=== PATIENT | male | born 1940 | race Caucasian/White ===

== ENCOUNTER → 2017-11-28 | Outpatient (CLI) | payer MEDICARE, OTHER ==
[~2017-11-28] MED LIST: ASPI-1471 PO; ASPI81TA94 PO; ATOR10TA24 PO; AZIT-1 PO; Areds2 PO; CETI-169 PO; CHOL10005 PO; DIPH-740 PO; GLUC-129 PO; GLUC-198 PO; GUAI120L PO; IBU200 PO; METO25TA23 PO; METXL50 PO; MULT1CAP41 PO; OMEG-11 PO; PRED20TA6 PO; SAW1CAPS3 PO; SOLI10TA8 PO; SULF-198 PO; TURM1POW3 MC; UBID400C6 PO
--- NOTE | 2017-11-28 08:59 | EKG ---
FACILITY: [facility] PATIENT NAME: GARRET SILVEIRA : [id number] MR: [id number] V: [id number] EXAM DATE: ORDERING PHYSICIAN: YANIV HILTON TECHNOLOGIST: MARIN Simmons Reason : PREOP-SHOULDER Blood Pressure : / mmHG Vent. Rate : 047 BPM Atrial Rate : 047 BPM P-R Int : 190 ms QRS Dur : 148 ms QT Int : 512 ms P-R-T Axes : 065 -01 075 degrees QTc Int : 453 ms Marked sinus bradycardia LBBB Abnormal ECG Unchanged from previous Confirmed by LISS BRITTON ([id number]) on 11/29/2017 6:29:53 AM Referred By: Confirmed By:LISS BRITTON
[2017-11-28 09:01] LABS: PLATELET COUNT, AUTOMATED 225 K/uL (150-450)
--- NOTE | 2017-11-28 09:06 | RADIOLOGY IMAGING REPORT ---
FACILITY: [facility] PATIENT NAME: Raúl Simpson : 1940 MR: [id number] V: [id number] EXAM DATE: ORDERING PHYSICIAN: YANIV HILTON TECHNOLOGIST: Location: [facility] Patient: Raúl Simpson : 1940 Visit/Account:[id number] Date of Sevice: 11/28/2017 CHEST PA AND LAT HISTORY: Preop; left shoulder pain and degenerative joint disease with planned arthroplasty. COMPARISON: 03/30/2016 FINDINGS: Frontal and lateral views chest obtained. Lines/tubes: None. Lungs/pleura: Normally inflated and clear. No evidence of pneumothorax or effusion. Cardiomediastinum and juan: Within normal limits. Bones/soft tissues: Mild disc degenerative changes mid to inferior thoracic spine. Degenerative grover es left glenohumeral joint incompletely visualized or assessed. Additional findings: None. IMPRESSION: No evidence of an acute intrathoracic process or other significant interval change. Report Dictated By: Sudeep العراقي MD at 11/28/2017 8:58 AM Report E-Signed By: Sudeep العراقي MD at 11/28/2017 9:01 AM WSN:[id number]
== END ==
LOC: RAD 08:03
PROVIDERS: ATTEND Orthopaedic Surgery Hand Surgery
DX: Z01.812 Encounter for preprocedural laboratory examination (principal); Z01.818 Encounter for other preprocedural examination; Z01.810 Encounter for preprocedural cardiovascular examination; M19.012 Primary osteoarthritis, left shoulder; Z85.46 Personal history of malignant neoplasm of prostate; R00.1 Bradycardia, unspecified; I44.7 Left bundle-branch block, unspecified; R94.31 Abnormal electrocardiogram [ECG] [EKG]
CPT/HCPCS: 36415; 71046; 81001; 82040; 82247; 82310; 82374; 82435; 82565; 82947; 84075; 84132; 84155; 84295; 84450; 84460; 84520; 85025; 93005

== ENCOUNTER 2017-12-08 03:40 | Day surgery (SDC) | payer MEDICARE, OTHER ==
[2017-12-07 15:45] LABS: INR 1.04
[2017-12-08] VITALS (19 sets, daily range): BP systolic 83–127; BP diastolic 49–81
[~2017-12-08] VITALS: Ht 175.3 cm; Wt 79.8 kg
[2017-12-08] MEDS ORDERED: GELATIN SPONGE 12-7MM ONE (07:25)
[2017-12-08] MEDS ORDERED: THROMBIN TOP SOLN 5000INTLU VL ONE (07:25)
[2017-12-08] MEDS ORDERED: fentaNYL CITR 250 MCG/5 ML AMP ONE (08:06)
[2017-12-08] MEDS ORDERED: LIDOCAINE MPF 1% 5 ML VIAL ONE (08:07)
[2017-12-08] MEDS ORDERED: DEXAMETHASONE SOD 4 MG/ML VIAL ONE ×2 (08:07→08:30)
[2017-12-08] MEDS ORDERED: PROPOFOL EMUL(*) 10MG/ML 20 ML 20 ML ONE (08:07)
[2017-12-08] MEDS ORDERED: ONDANSETRON 4 MG/2 ML VIAL ONE ×2 (08:07→08:30)
[2017-12-08] MEDS ORDERED: ROCURONIUM BROM 10 MG/ML 10 ML ONE (08:30)
[2017-12-08] MEDS ORDERED: TRANEXAMIC AC 1000 MG/10ML SDV 1,000 MG in DEXTROSE 5% 50 ML BAG 50 ML IV ONE (09:00)
[2017-12-08] MEDS ORDERED: VANCOMYCIN(*) 1 GM VIAL 1 GM, VANCOMYCIN (*) 0.5 GM VIAL 0.25 GM in NS(*) 0.9% 250 ML B... IVPB ONE (09:00)
[2017-12-08] MEDS ORDERED: NORMOSOL R SOLN(*) 1000 ML BAG 1,000 ML IV PRN (09:00)
[2017-12-08] MEDS ORDERED: cloNIDine EPIDUR INJ 100MCG/ML 40 MCG, ROPIVACAINE 0.5% 20 ML VIAL 25 ML, EPINEPHrine H... INJ ONE (09:00)
[2017-12-08] MEDS ORDERED: FAMOTIDINE 20 MG TAB PO ONE (09:00)
[2017-12-08] MEDS ORDERED: LIDOCAINE/SOD BICARB 8.4% SYR ID ONE (09:00)
[2017-12-08] MEDS ORDERED: MIDAZOLAM 2 MG/2 ML VIAL IVP ONE (09:00)
[2017-12-08] MEDS ORDERED: NS 0.9% 20 ML SDV 20 ML ONE (10:01)
[2017-12-08] MEDS ORDERED: LACTATED RINGER 3000 ML BAG IR ONE (10:15)
[2017-12-08] MEDS ORDERED: NS 0.9% IRRIGATION 1000ML PLCT IR ONE (10:16)
[2017-12-08] MEDS ORDERED: SUGAMMADEX SOD 500 MG/5 ML SDV ONE (11:25)
[2017-12-08] MEDS ORDERED: fentaNYL CITR 100 MCG/2 ML AMP ONE ×2 (11:51→12:16)
--- NOTE | 2017-12-08 15:12 | RADIOLOGY IMAGING REPORT ---
FACILITY: [facility] PATIENT NAME: Raúl Simpson : 1940 MR: [id number] V: [id number] EXAM DATE: ORDERING PHYSICIAN: YANIV HILTON TECHNOLOGIST: Location: [facility] Patient: Raúl Simpson : 1940 Visit/Account:[id number] Date of Sevice: 12/08/2017 SHOULDER 1 VIEW LEFT HISTORY: Left shoulder arthroplasty COMPARISON: None FINDINGS: Left shoulder: 2 views of the left shoulder. Left shoulder hemiarthroplasty in good alignment. Mild proliferative changes at the AC joint. Gas within the soft tissues from recent surgery. IMPRESSION: 1. Left shoulder hemiarthroplasty without evidence of complication. Report Dictated By: Mehul Wilhelm MD at 12/08/2017 3:06 PM Report E-Signed By: Mehul Wilhelm MD at 12/08/2017 3:07 PM WSN:[id number]
[2017-12-08] MEDS ORDERED: OXYC-865 PO (15:14)
--- NOTE | 2017-12-08 16:05 | BIENZ SHOULDER ARTH ---
EVENT DATE: December 08, 2017 SURGEON: Saulo Almendarez MD ANESTHESIOLOGIST: Angel Matos MD ANESTHESIA: client support consultant: JANET Peck, [employer] SAL[employer]ENT PREOPERATIVE DIAGNOSIS Left shoulder degenerative joint disease. POSTOPERATIVE DIAGNOSIS Left shoulder degenerative joint disease. PROCEDURE PERFORMED Left resurfacing total shoulder arthroplasty. ESTIMATED BLOOD LOSS 85. IVF 1500 TOURNIQUET TIME None. SPECIMENS None. COMPLICATIONS None. IMPLANTS Arthrosurface total shoulder arthroplasty with a 12 mm post, a 54 x 50 head, and a 20 x 25 double glenoid. SUMMARY OF PROCEDURE The patient was brought into the operating room and placed on the OR table in the supine position. He was then given a general anesthetic and placed into the [id number] position. A deltopectoral approach was taken, deepened through skin and subcutaneous tissue. The cephalic vein was identified. The deltoid was taken laterally with the cephalic vein after first freeing up the subdeltoid plane. We palpated the axillary nerve, retracted the conjoint tendon , and then divided the subscapularis down to the anterior humeral circumflex vessels, and then cauterized these. At this point, I began to free up the capsule away from the humeral neck. We stayed directly on bone at his stage. Progressive external rotation allowed for exposure of this region, and I used a green elevator to strip the capsule away from the bone just beneath the edge of osteophytes. Having done this, we then went about removing the osteophytes from the margin of the head, placed two Darrach retractors and a posterior humeral retractor, and then assessed the condition of the head and the size. It looked like a 54 x 50 would fit best. We then used the reamer to place the guide wire, and then reamed down to the margin of the rotator cuff. Once this was done, we removed the excess bone from the margin of the reaming, and went about exposing the glenoid. I chose to leave the labrum and the surrounding soft tissues intact to minimize trauma to the glenoid region. It looked like we would have adequate exposure. I made a small window in the anterior aspect of the labrum against the bone so that we could place a curve Hohmann retractor , and subsequent to this proceeded with exposure of the glenoid with a Fukuda. There was a central area on the inferior margin that had no cartilage. The rest of it still had cartilage. We started the reaming device by placing the initial guide wire at 30 degrees and went into the normal position for the first reamer, set the second guide, placed another wire, and then did the secondary reamer on the superior margin, did a trial. It was inset approximately 2 mm. We then drilled the flexible pegs, and then did a trial again. It seemed to fit nicely with an inset position. The wound was irrigated one final time before placing thrombin sponges in against the drill area where the reaming had been undertaken into the vault of the glenoid. This was held under pressure while the cement was mixed, and the implant was opened. We took the thrombin out, irrigated one final time, dried it and then hand packed cement, after which the glenoid insert was placed, and then we removed excess cement. After full polymerization, the shoulder was brought back forward. We did the trial 54 x 50 head. It seemed to fit quite well. Once we liked the position of the trial, then I secured it with three threaded guide wires, and then prepared the drill for the central peg. After drilling for this , the peg was then inserted to the normal depth, and then we removed the trial head. After irrigating, the final head was impacted into position onto the Rodrigues taper and against the bone. We brought the arm into external rotation and abduction to confirm that there were no additional bone spurs that had to be removed, and none were seen around the periphery. The wound was irrigated. I checked the reduction. It seemed to be quite stable superior to inferior as well as anterior to posterior. I elected not to do a biceps tenodesis or tenotomy. It did not appear that this would cause a major problem for him, and we are trying to maintain as much anatomic function as possible. Local anesthetic was injected around the periphery of the glenoid during the first step of this procedure, and then after the humeral head was complete, we additionally put some more around the deltoid pectoralis and into the skin. The subscapularis was repaired in its anatomic location using suture. The wound was irrigated one more time before closing skin with subcutaneous 3-0 Vicryl, and then 4-0 Monocryl was used to close the final layer. Steri-Strips were applied. He was awakened and given a dry sterile dressing and transferred to the recovery area in stable condition with a sling in place. He was given the option of either going home or staying as his discretion. [place]
[2017-12-08] MEDS ORDERED: NORMOSOL R SOLN(*) 1000 ML BAG 1,000 ML IV ONE (16:10)
[2017-12-15] MEDS ORDERED: PRED20TA6 PO (10:57)
[2017-12-15] MEDS ORDERED: DIPH-464 PO (10:57)
== END 2017-12-08 13:15 | disposition home or self-care (01) ==
LOC: OR 03:40
PROVIDERS: ATTEND Orthopaedic Surgery Hand Surgery
DX: M19.012 Primary osteoarthritis, left shoulder (principal)
CPT/HCPCS: 23472; 36415; 73020; 85610; 86850; 86900; 86901; 97165; A4565; A9270; C1713; C1776; J0171; J0735; J1100; J1885; J2001; J2405; J2704; J2795; J3010; J3370; J7050; J7060

== ENCOUNTER 2017-12-11 09:07 | Emergency (ER) | payer MEDICARE, OTHER ==
[~2017-12-11] VITALS: Ht 175.3 cm; Wt 79.8 kg
[~2017-12-11 09:07] MED LIST changes: -DIPH-464 PO; -DOCU-416 PO; +NS(*) 0.9% 1000 ML BAG 1,000 ML IV ONE
--- NOTE | 2017-12-11 09:09 | ER Report ---
History and Physical Time Seen By MD: 09:08 HPI/ROS CHIEF COMPLAINT: Syncopal episode HISTORY OF PRESENT ILLNESS: Patient had a syncopal episode while getting out of bed this morning. Patient is postop day #3 from a right shoulder repair. He was prescribed Percocet which she took 2 tablets yesterday. Patient stood up and felt dizzy and passed out he did fall against a window breaking it fortunately however the curtain was in place and patient did not receive any injuries from the broken glass. Patient has a past medical history for syncopal episodes in fact he passed out the day after the surgery. Prior to that his last syncopal episode was 2 years ago. He does have a history of a positive "tilt test". Also history of low blood pressure and bradycardia. He has a past medical history for left bundle branch block which is not new. The patient's primary concern on this ED visit is actually his constipation. He did have a small bowel movement yesterday he did take one Dulcolax last evening without effect. Last normal bowel movement was prior to surgery. Patient does complain of some generalized abdominal distention and discomfort. He also does feel some rectal pressure. REVIEW OF SYSTEMS: Constitutional: No fever, no chills. Eyes: No discharge. ENT: No sore throat. Cardiovascular: No chest pain, no palpitations. Respiratory: No cough, no shortness of breath. Gastrointestinal: Constipation Genitourinary: No hematuria. Musculoskeletal: No back pain. Skin: No rashes. Neurological: No headache. Syncopal episode Allergies: Coded Allergies: No Known Drug Allergies (Verified , 08/08/17) Home Meds Active Scripts Docusate Sodium (COLACE) 100 Mg Capsule, 100 MG PO BID for constipation, #14 CAPSULE 0 Refills Prov:DEBORA ALONSO MD 12/11/17 Reported Medications Oxycodone Hcl/Acetaminophen (PERCOCET 5-325 MG TABLET) 1 Each Tablet, 1-2 EACH PO Q4-6H Y for PAIN, #40 TAB 12/08/17 [Areds2] No Conflict Check, 2 CAP PO DAILY 07/17/17 Turmeric (CURCUMIN) Unknown Strength Powder, MC 07/17/17 Aspirin (ASPIR 81) 81 Mg Tablet.dr, 1 TAB PO QDAY, TAB 07/17/17 Cholecalciferol (Vitamin D3) (VITAMIN D3) 1,000 Unit Tablet, 2 CAP PO DAILY, TAB 07/17/17 Glucosa Edge 2KCL/Chondroitin Edge (GLUCOSAMINE & CHONDROITIN CAP) 1 Each Capsule, 1 EACH PO DAILY, CAPSULE 07/17/17 Saw [place] Xtr/Zinc Picolin (SAW [place] CAPSULE) 1 Each Capsule, 1 EACH PO DAILY, CAPSULE 07/17/17 Docosahexanoic Acid/Epa (Fish Oil 1,000 Mg Capsule) 1 Cap Capsule, 1 CAP PO DAILY 09/14/12 Multivitamins W-Minerals (Multivitamin) 1 Cap Capsule, 1 CAP PO DAILY 08/21/07 Past Medical/Surgical History Past, Family, & Social History Past medical history for low blood pressure as well as a "positive" tilt table test. Patient has had syncopal episodes in the past. No prior history of heart attack. Patient does have a history of left bundle branch block. HEENT: Reports hx of: allergic rhinitis (likely. trial cetirizine 01/03. ) cataracts hearing deficit ([facility] but don't help much. ) Cardiovascular: Reports hx of: hyperlipidemia other CV history (orthostatic hypotension with syncope Dx [address] Alford.) Respiratory: Reports hx of: other respiratory history (persistent cough after URI in early 2014 peak flow 470 in 01/04. ) Genitourinary: Reports hx of: benign prostatic hypertro (slow flow and hesitancy. Flomax little benefit. ) Musculoskeletal: Reports hx of: osteoarthritis (in both shoulders. dry needling at [facility] helpful in 2013. ) Hematology/oncology: Reports hx of: prostate cancer (Dx about 2010 and had surgery but no chemo or radiation. PSA 2.4 in 10/03. ) HEENT: Reports hx of: cataract extraction (bilateral) Genitourinary: Reports hx of: other surgery (targeted surgery for prostate cancer 2010 in [place]. ) Musculoskeletal: Reports hx of: arthroscopy (right knee for torn meniscus in 2009. ) Integumentary: Reports hx of: Mohs micrographic surgery (2007. skin CA on nose. ) skin cancer removal other integumentary surg (removal skin cancer scalp on right. ) Hx Smoking: No Smoking Status: Never Smoker Exposure to Second Hand Smoke?: No Hx Alcohol Use: Yes Constitutional Vital Sign - Last 24 Hours 1/22/18 12/11/17 12/11/17 12/11/17 09:08 09:12 09:30 10:00 Temp 98.7 Pulse 56 49 55 Resp 18 9 18 B/P (MAP) 110/59 119/60 (79) 121/62 (81) Pulse Ox 96 98 95 O2 Delivery Nasal Cannula O2 Flow Rate 2.0 12/11/17 12/11/17 12/11/17 10:30 11:00 11:27 Pulse 60 56 60 Resp 12 23 18 B/P (MAP) 143/78 (99) 121/66 (84) 119/65 (83) Pulse Ox 98 O2 Delivery Room Air Intake and Output 12/11/17 12/11/17 12/12/17 15:00 23:00 07:00 Intake Total 1000 ml Balance 1000 ml Physical Exam General/Constitutional: Patient is awake, alert, nontoxic and in no acute respiratory distress. Head: Normocephalic and atraumatic. Eyes: Conjunctival clear, Pupils are equal and reactive to light. Extraocular muscles are intact and symmetrical. Sclera are clear and anicteric. Ears:External canals are clear. Nares: No rhinorrhea or bleeding. Turbinates are pink and moist. Oropharyngeal: Mucous membranes are moist. There is no pharyngeal erythema or exudate. There are no palatal petechiae. Uvula is midline and symmetrical. Neck: Supple, no adenopathy. Cardiovascular: Heart is regular with a bradycardic rate without audible murmurs , rubs or gallops. Pulmonary: Lungs are clear to auscultation bilaterally. There are no wheezes, rales, or rhonchi. Chest rise is symmetrical Abdomen: Soft, nontender, no guarding or peritoneal signs. Extremities: No gross deformities, No peripheral cyanosis. Able to move all 4 extremities. Neuro: Alert and oriented X3, Cranial nerves 2 thru 12 are intact and symmetrical. Skin: No rashes, skin is warm dry and well perfused. Medical Decision Making Data Points Result Diagram: 12/11/17 0910 12/11/17 0910 Laboratory Hematology Test 12/11/17 09:10 12/11/17 10:45 Red Blood Count 4.30 M/uL (4.00-5.60) Mean Corpuscular Volume 89.6 fL (80.0-96.0) Mean Corpuscular Hemoglobin 31.1 pg (26.0-33.0) Mean Corpuscular Hemoglobin Concent 34.8 g/dL (32.0-36.0) Red Cell Distribution Width 12.4 % (11.5-14.5) Mean Platelet Volume 7.7 fL (7.2-11.1) Neutrophils (%) (Auto) 52.4 % (39.4-72.5) Lymphocytes (%) (Auto) 35.7 % (17.6-49.6) Monocytes (%) (Auto) 9.9 % (4.1-12.4) Eosinophils (%) (Auto) 1.2 % (0.4-6.7) Basophils (%) (Auto) 0.8 % (0.3-1.4) Nucleated RBC Relative Count (auto) 0.0 /100WBC Neutrophils # (Auto) 3.8 K/uL (2.0-7.4) Lymphocytes # (Auto) 2.6 K/uL (1.3-3.6) Monocytes # (Auto) 0.7 K/uL (0.3-1.0) Eosinophils # (Auto) 0.1 K/uL (0.0-0.5) Basophils # (Auto) 0.1 K/uL (0.0-0.1) Nucleated RBC Absolute Count (auto) 0.00 K/uL Sodium Level 138 mmol/L (137-145) Potassium Level 3.7 mmol/L (3.5-5.0) Chloride Level 103 mmol/L (98-107) Carbon Dioxide Level 25 mmol/L (22-30) Blood Urea Nitrogen 17 mg/dl (9-21) Creatinine 1.30 mg/dl (0.66-1.25) Glomerular Filtration Rate Calc 53.8 Random Glucose 79 mg/dl (75-110) Calcium Level 9.5 mg/dl (8.4-10.2) Total Bilirubin 0.8 mg/dl (0.2-1.3) Aspartate Amino Transf (AST/SGOT) 29 U/L (0-35) Alanine Aminotransferase (ALT/SGPT) 34 U/L (0-56) Alkaline Phosphatase 78 U/L (0-126) Troponin I < 0.012 ng/ml Total Protein 6.6 gm/dl (6.3-8.2) Albumin 3.5 g/dl (3.5-5.0) Urine Color Yellow Urine Clarity Clear Urine pH 8.0 pH (4.8-9.5) Urine Specific [place] 1.018 Urine Protein Negative mg/dL (NEGATIVE) Urine Glucose (UA) Negative mg/dL (NEGATIVE) Urine Ketones Negative mg/dL (NEGATIVE) Urine Blood Negative (NEGATIVE) Urine Nitrite Negative (NEGATIVE) Urine Bilirubin Negative (NEGATIVE) Urine Urobilinogen Negative mg/dL (0.2-1.9) Urine Leukocyte Esterase Negative (NEGATIVE) Urine RBC None /HPF (0-2/HPF) Urine WBC 4 /HPF (0-5/HPF) Urine Squamous Epithelial Cells Few /LPF (</=FEW) Urine Bacteria Negative /HPF (NONE-FEW) Urine Mucus None /HPF (NONE-FEW) Chemistry Test 12/11/17 09:10 12/11/17 10:45 White Blood Count 7.3 k/uL (4.5-11.0) Red Blood Count 4.30 M/uL (4.00-5.60) Hemoglobin 13.4 g/dL (14.0-18.0) Hematocrit 38.5 % (42.0-52.0) Mean Corpuscular Volume 89.6 fL (80.0-96.0) Mean Corpuscular Hemoglobin 31.1 pg (26.0-33.0) Mean Corpuscular Hemoglobin Concent 34.8 g/dL (32.0-36.0) Red Cell Distribution Width 12.4 % (11.5-14.5) Platelet Count 246 K/uL (150-450) Mean Platelet Volume 7.7 fL (7.2-11.1) Neutrophils (%) (Auto) 52.4 % (39.4-72.5) Lymphocytes (%) (Auto) 35.7 % (17.6-49.6) Monocytes (%) (Auto) 9.9 % (4.1-12.4) Eosinophils (%) (Auto) 1.2 % (0.4-6.7) Basophils (%) (Auto) 0.8 % (0.3-1.4) Nucleated RBC Relative Count (auto) 0.0 /100WBC Neutrophils # (Auto) 3.8 K/uL (2.0-7.4) Lymphocytes # (Auto) 2.6 K/uL (1.3-3.6) Monocytes # (Auto) 0.7 K/uL (0.3-1.0) Eosinophils # (Auto) 0.1 K/uL (0.0-0.5) Basophils # (Auto) 0.1 K/uL (0.0-0.1) Nucleated RBC Absolute Count (auto) 0.00 K/uL Glomerular Filtration Rate Calc 53.8 Calcium Level 9.5 mg/dl (8.4-10.2) Total Bilirubin 0.8 mg/dl (0.2-1.3) Aspartate Amino Transf (AST/SGOT) 29 U/L (0-35) Alanine Aminotransferase (ALT/SGPT) 34 U/L (0-56) Alkaline Phosphatase 78 U/L (0-126) Troponin I < 0.012 ng/ml Total Protein 6.6 gm/dl (6.3-8.2) Albumin 3.5 g/dl (3.5-5.0) Urine Color Yellow Urine Clarity Clear Urine pH 8.0 pH (4.8-9.5) Urine Specific [place] 1.018 Urine Protein Negative mg/dL (NEGATIVE) Urine Glucose (UA) Negative mg/dL (NEGATIVE) Urine Ketones Negative mg/dL (NEGATIVE) Urine Blood Negative (NEGATIVE) Urine Nitrite Negative (NEGATIVE) Urine Bilirubin Negative (NEGATIVE) Urine Urobilinogen Negative mg/dL (0.2-1.9) Urine Leukocyte Esterase Negative (NEGATIVE) Urine RBC None /HPF (0-2/HPF) Urine WBC 4 /HPF (0-5/HPF) Urine Squamous Epithelial Cells Few /LPF (</=FEW) Urine Bacteria Negative /HPF (NONE-FEW) Urine Mucus None /HPF (NONE-FEW) Urinalysis Test 12/11/17 10:45 Urine Color Yellow Urine Clarity Clear Urine pH 8.0 pH (4.8-9.5) Urine Specific [place] 1.018 Urine Protein Negative mg/dL (NEGATIVE) Urine Glucose (UA) Negative mg/dL (NEGATIVE) Urine Ketones Negative mg/dL (NEGATIVE) Urine Blood Negative (NEGATIVE) Urine Nitrite Negative (NEGATIVE) Urine Bilirubin Negative (NEGATIVE) Urine Urobilinogen Negative mg/dL (0.2-1.9) Urine Leukocyte Esterase Negative (NEGATIVE) Urine RBC None /HPF (0-2/HPF) Urine WBC 4 /HPF (0-5/HPF) Urine Squamous Epithelial Cells Few /LPF (</=FEW) Urine Bacteria Negative /HPF (NONE-FEW) Urine Mucus None /HPF (NONE-FEW) EKG/Imaging EKG Interpretation EKG done by prehospital personnel shows a left bundle branch block with ventricular rate of 56 bpm. EKG was compared with one that was done on 2017 for preop for his right shoulder surgery this EKG shows a left bundle branch block with a ventricular rate of 47 bpm. Monitor Interpretation: Sinus Bradycardia Imaging FACILITY: [facility] PATIENT NAME: Raúl Simpson : 1940 MR: [id number] V: [id number] EXAM DATE: ORDERING PHYSICIAN: DEBORA ALONSO TECHNOLOGIST: Location: [facility] [place] Patient: Raúl Simpson : 1940 Visit/Account:[id number] Date of Sevice: 12/11/2017 EXAMINATION: CT head without IV contrast HISTORY: Syncope. COMPARISON: CT head from 03/30/2016. TECHNIQUE: Contiguous axial images were obtained from the skull base to the vertex without intravenous contrast. Sagittal and coronal reformatted images are also submitted. One of the following dose optimization techniques was utilized in the performance of this exam: Automated exposure control; adjustment of the mA and/ or kV according to the patient's size; or use of an iterative reconstruction technique. Specific details can be referenced in the facility's radiology CT exam operational policy. FINDINGS: Brain volume: Normal. Ventricles: Normal. Acute ischemic changes: None. Hemorrhage: No acute intracranial hemorrhage. Masses/edema: None. Palencia-white: Negative. White matter: Normal. Vessels: Calcified plaque of both carotid siphons. Extra-axial: Negative. Calvarium/scalp: No acute fracture. Skull base/visualized face: Negative. Visualized sinuses/orbits: Mild mucosal thickening in the bilateral ethmoid air cells. IMPRESSION: No acute fracture, hemorrhage or intracranial mass lesion. No CT evidence of acute infarct. Report Dictated By: Karen Ramos MD at 12/11/2017 9:58 AM Report E-Signed By: Karen Ramos MD at 12/11/2017 10:00 AM WSN:[id number] ED Course/Re-evaluation Clinical Indication for ER IV: Hydration, IV Access ED Course 12/11/2017 9:33:30 am plan at this time will be a syncopal workup including CT of the head. We'll also give patient enema for constipation to see if he can have a bowel movement. Re-evaluation 12/11/2017 11:09:58 am patient had a bowel movement in the ED after soapsuds enema and he states that he "feels like a new man" plan at this time will be to discharge home we'll prescribe Colace as a stool softener patient counseled on judicious use of Percocet and I counseled to try to avoid if other pain medications are working. Decision to Disposition Date: Dec 11, 2017 Decision to Disposition Time: 11:09 Depart Departure Latest Vital Signs Vital Signs Date Time Temp Pulse Resp B/P (MAP) Pulse Ox O2 Delivery O2 Flow Rate FiO2 12/11/17 11:27 60 18 119/65 (83) 98 Room Air 12/11/17 09:12 2.0 12/11/17 09:08 98.7 Impression: Primary Impression: Syncope Additional Impression: Constipation Condition: Improved Disposition: HOME OR SELF-CARE Referrals: MAX ORTA MD (PCP) New Scripts Docusate Sodium (COLACE) 100 Mg Capsule 100 MG PO BID for constipation, #14 CAPSULE 0 Refills Prov: DEBORA ALONSO MD 12/11/17 Problem Qualifiers Primary Impression: Syncope Syncope type: vasovagal syncope Qualified Codes: R55 - Syncope and collapse Additional Impression: Constipation Constipation type: drug induced constipation Qualified Codes: K59.03 - Drug induced constipation DEBORA ALONSO MD Dec 11, 2017 09:09
--- NOTE | 2017-12-11 09:20 | EKG ---
FACILITY: [facility] PATIENT NAME: GARRET SILVEIRA : [id number] MR: [id number] V: [id number] EXAM DATE: ORDERING PHYSICIAN: DEBORA ALONSO TECHNOLOGIST: LUCA Simmons Reason : Blood Pressure : / mmHG Vent. Rate : 052 BPM Atrial Rate : 052 BPM P-R Int : 186 ms QRS Dur : 146 ms QT Int : 490 ms P-R-T Axes : 069 -03 069 degrees QTc Int : 455 ms Sinus bradycardia Left bundle branch block Abnormal ECG Similar to previous EKGs Confirmed by HELDER CHUNG ([id number]) on 12/11/2017 1:34:14 PM Referred By: CELESTE Confirmed By:HELDER CHUNG
[2017-12-11] MEDS ORDERED: EMS NS 0.9%(*) 1000 ML BAG 1,000 ML IV ONE (09:35)
[2017-12-11 09:48] LABS: PLATELET COUNT, AUTOMATED 246 K/uL (150-450)
--- NOTE | 2017-12-11 10:05 | RADIOLOGY IMAGING REPORT ---
FACILITY: [facility] PATIENT NAME: Raúl Simpson : 1940 MR: [id number] V: [id number] EXAM DATE: ORDERING PHYSICIAN: DEBORA ALONSO TECHNOLOGIST: Location: [facility] Patient: Raúl Simpson : 1940 Visit/Account:[id number] Date of Sevice: 12/11/2017 EXAMINATION: CT head without IV contrast HISTORY: Syncope. COMPARISON: CT head from 03/30/2016. TECHNIQUE: Contiguous axial images were obtained from the skull base to the vertex without intraven ous contrast. Sagittal and coronal reformatted images are also submitted. One of the following dose optimization techniques was utilized in the performance of this exam: Autom ated exposure control; adjustment of the mA and/or kV according to the patient's size; or use of an i terative reconstruction technique. Specific details can be referenced in the facility's radiology C T exam operational policy. FINDINGS: Brain volume: Normal. Ventricles: Normal. Acute ischemic changes: None. Hemorrhage: No acute intracranial hemorrhage. Masses/edema: None. Pal[place]-white: Negative. White matter: Normal. Vessels: Calcified plaque of both carotid siphons. Extra-axial: Negative. Calvarium/scalp: No acute fracture. Skull base/visualized face: Negative. Visualized sinuses/orbits: Mild mucosal thickening in the bilateral ethmoid air cells. IMPRESSION: No acute fracture, hemorrhage or intracranial mass lesion. No CT evidence of acute infarct. Report Dictated By: Karen Ramos MD at 12/11/2017 9:58 AM Report E-Signed By: Karen Ramos MD at 12/11/2017 10:00 AM WSN:[id number]
[2017-12-11] MEDS ORDERED: NS(*) 0.9% 1000 ML BAG 1,000 ML IV ONE (10:10)
[2017-12-11] MEDS ORDERED: DOCU-416 PO (11:12)
[2017-12-11 11:27] VITALS: BP 119/65
== END 2017-12-11 11:35 | disposition home or self-care (01) ==
LOC: ER 09:07
DX: K59.03 Drug induced constipation (principal); R55 Syncope and collapse
CPT/HCPCS: 70450; 81001; 82040; 82247; 82310; 82374; 82435; 82565; 82947; 84075; 84132; 84155; 84295; 84450; 84460; 84484; 84520; 85025; 93005; 96360; 99284

== ENCOUNTER → 2017-12-11 | Outpatient (CLI) | payer MEDICARE, OTHER ==
[~2017-12-11] MED LIST changes: +DIPH-464 PO; +DOCU-416 PO; +OXYC-865 PO
== END ==
LOC: AMB 08:40
PROVIDERS: ATTEND Nurse Practitioner
DX: R55 Syncope and collapse (principal); S60.413A Abrasion of left middle finger, initial encounter; R41.82 Altered mental status, unspecified; R00.1 Bradycardia, unspecified; I44.7 Left bundle-branch block, unspecified; R10.84 Generalized abdominal pain; R14.0 Abdominal distension (gaseous); W18.39XA Other fall on same level, initial encounter; Y92.013 Bedroom of single-family (private) house as the place of occurrence of the external cause
CPT/HCPCS: A0425; A0427

== ENCOUNTER 2017-12-15 23:56 | Emergency (ER) | payer MEDICARE, OTHER ==
[~2017-12-15] VITALS: Ht 175.3 cm; Wt 79.8 kg
[~2017-12-15 23:56] MED LIST changes: +DIPH-464 PO; +DOCU-416 PO; -NS(*) 0.9% 1000 ML BAG 1,000 ML IV ONE
--- NOTE | 2017-12-15 23:59 | ER Report ---
History and Physical Time Seen By MD: 23:58 HPI/ROS CHIEF COMPLAINT: Rash, itching HISTORY OF PRESENT ILLNESS: 77-year-old male presents to the ER with a rash for 2 days. Patient is 1 week out from a total left shoulder replacement Dr. Almendarez. Patient had a single episode on Percocet. He's been taking Aleve. 2 days ago he broke out in 8 erythematous rash with intense itching. He was seen by Dr. Orta who prescribed Benadryl and prednisone. Unfortunately the patient didn't fill the prescriptions. Presents to the ER in the middle the night with intense itching unable to sleep. He describes his skin is burning. He notes no airway swelling or difficulty breathing. He denies fever or chills. REVIEW OF SYSTEMS: Respiratory: No cough, no dyspnea. Cardiovascular: No chest pain, no palpitations. Gastrointestinal: No vomiting, no abdominal pain. Musculoskeletal: No back pain. Allergies: Coded Allergies: No Known Drug Allergies (Verified , 12/16/17) Home Meds Active Scripts Prednisone (PREDNISONE) 20 Mg Tablet, 20 MG PO QDAY for 3 Days, #3 TAB Prov:MAX ORTA MD 12/15/17 Diphenhydramine Hcl (DIPHENHYDRAMINE HCL) 25 Mg Capsule, 25 MG PO Q6-8H for 3 Days, #9 CAPSULE Prov:MAX ORTA MD 12/15/17 Docusate Sodium (COLACE) 100 Mg Capsule, 100 MG PO BID for constipation, #14 CAPSULE 0 Refills Prov:DEBORA ALONSO MD 12/11/17 Reported Medications Oxycodone Hcl/Acetaminophen (PERCOCET 5-325 MG TABLET) 1 Each Tablet, 1-2 EACH PO Q4-6H Y for PAIN, #40 TAB 12/08/17 [Areds2] No Conflict Check, 2 CAP PO DAILY 07/17/17 Turmeric (CURCUMIN) Unknown Strength Powder, MC 07/17/17 Aspirin (ASPIR 81) 81 Mg Tablet., 1 TAB PO QDAY, TAB 07/17/17 Cholecalciferol (Vitamin D3) (VITAMIN D3) 1,000 Unit Tablet, 2 CAP PO DAILY, TAB 07/17/17 Glucosa Edge 2KCL/Chondroitin Edge (GLUCOSAMINE & CHONDROITIN CAP) 1 Each Capsule, 1 EACH PO DAILY, CAPSULE 8/28/17 Saw [place] Xtr/Zinc Picolin (SAW PALMETTO CAPSULE) 1 Each Capsule, 1 EACH PO DAILY, CAPSULE 07/17/17 Docosahexanoic Acid/Epa (Fish Oil 1,000 Mg Capsule) 1 Cap Capsule, 1 CAP PO DAILY 09/14/12 Multivitamins W-Minerals (Multivitamin) 1 Cap Capsule, 1 CAP PO DAILY 08/21/07 Past Medical/Surgical History Past, Family, & Social History Past Medical History Reviewed: Yes HEENT: Reports hx of: allergic rhinitis (likely. trial cetirizine 01/03. ) cataracts hearing deficit (Has hearing aids [facility] but don't help much. ) Cardiovascular: Reports hx of: hyperlipidemia other CV history (orthostatic hypotension with syncope Dx [address] Alford. ) Respiratory: Reports hx of: other respiratory history (persistent cough after URI in early 2014 peak flow 470 in 01/04. ) Genitourinary: Reports hx of: benign prostatic hypertro (slow flow and hesitancy. Flomax little benefit. ) Musculoskeletal: Reports hx of: osteoarthritis (in both shoulders. dry needling at [facility] helpful in 2013. ) Hematology/oncology: Reports hx of: prostate cancer (Dx about 2010 and had surgery but no chemo or radiation. PSA 2.4 in 10/03. ) HEENT: Reports hx of: cataract extraction (bilateral) Genitourinary: Reports hx of: other surgery (targeted surgery for prostate cancer 2010 in [place]. ) Musculoskeletal: Reports hx of: arthroscopy (right knee for torn meniscus in 2009. ) Integumentary: Reports hx of: Mohs micrographic surgery (2007. skin CA on nose. ) skin cancer removal other integumentary surg (removal skin cancer scalp on right. ) Reviewed Nurses Notes: Yes Old Medical Records Reviewed: Yes Hx Smoking: No Smoking Status: Never Smoker Exposure to Second Hand Smoke?: No Hx Substance Use Disorder: No Hx Alcohol Use: Yes Constitutional Vital Sign - Last 24 Hours 12/15/17 12/16/17 12/16/17 12/16/17 23:59 00:02 00:25 00:26 Temp 98.3 Pulse 51 50 Resp 20 B/P (MAP) 152/77 (102) 152/77 163/84 (110) Pulse Ox 98 99 O2 Delivery Room Air 12/16/17 12/16/17 12/16/1727/18 01:26 02:01 02:06 02:21 Pulse 65 65 Pulse Ox 88 88 88 O2 Flow Rate 2.0 12/16/17 12/16/17 02:51 03:06 Pulse 69 ??? Pulse Ox 97 94 Physical Exam General Appearance: The patient is alert, has no immediate need for airway protection and no current signs of toxicity. Vital signs stable, afebrile, pulse ox normal HEENT: Pupils equal and round no injection. TMs normal, oropharynx without redness or exudate, no edema Respiratory: Chest is non tender, lungs are clear to auscultation. No wheezing or rails Cardiac: regular rate and rhythm Gastrointestinal: Abdomen is soft and non tender, no masses, bowel sounds normal. Musculoskeletal: Neck: Neck is supple and non tender. Extremities have full range of motion and are non tender.Well-healed surgical scar on left shoulder with intact Steri-Strips, no erythema, induration, redness or tenderness Skin: Fine maculopapular diffuse rash on all body surfaces DIFFERENTIAL DIAGNOSIS: After history and physical exam differential diagnosis was considered for allergic reaction, fixed drug eruption, erythema multiforme, urticaria Medical Decision Making ED Course/Re-evaluation Clinical Indication for ER IV: IV Access ED Course Patient was admitted to an examination room. H&P was done. The dental diagnoses was considered. Patient was stable vital signs. He's been having allergic reaction for 2 days. He was prescribed prednisone earlier yesterday when he failed to fill prescriptions. Night with intense pruritus and burning of the skin. He has nearly confluent urticaria on his body. Patient is 1 week out from surgery. He has no respiratory compromise on examination. Patient's treated with slight Medrol 125 mg IV, Benadryl 25 mg IV, Pepcid 20 mg by mouth. Patient continues to feel bad with the burning skin sensation. He is given Ativan 0.5 mg IV. After observation of 3 hours. Patient feels better and is able to sleep. He would like to go home. He is advised to fill the prescription of prednisone prescribed by Dr. Orta and take it as instructed. He is advised Benadryl 25 mg 1-2 tablets every 6-8 hours as needed to control the itching. Patient advised to follow-up with primary care and Dr. Almendarez as needed next week. Decision to Disposition Date: Dec 16, 2017 Decision to Disposition Time: 02:49 Depart Departure Latest Vital Signs Vital Signs Date Time Temp Pulse Resp B/P (MAP) Pulse Ox O2 Delivery O2 Flow Rate FiO2 12/16/17 03:06 ??? 94 12/16/17 02:21 2.0 12/16/17 00:25 163/84 (110) 12/16/17 00:02 98.3 20 Room Air Impression: Primary Impression: Acute allergic reaction Additional Impression: Status post shoulder surgery Condition: Improved Disposition: HOME OR SELF-CARE Referrals: MAX ORTA MD (PCP) Patient Instructions: General Allergic Reaction (ED) Additional Instructions: Take Benadryl 25 mg 1-2 tablets every 6-8 hours as needed for itching Follow-up with your primary care if unimproved on Monday or Monday turned to the ER for any worsening Problem Qualifiers Primary Impression: Acute allergic reaction Encounter type: initial encounter Qualified Codes: T78.40XA - Allergy, unspecified, initial encounter CAMPOS PELAYO DO Dec 15, 2017 23:59
[2017-12-16] MEDS ORDERED: methylPREDNIS SUCC 125 MG/2ML IVP ONE (00:10)
[2017-12-16] MEDS ORDERED: FAMOTIDINE 20 MG TAB PO ONE (00:10)
[2017-12-16] MEDS ORDERED: diphenhydrAMINE 50 MG/ML VIAL IVP ONE (00:10)
[2017-12-16 00:25] VITALS: BP 163/84
[2017-12-16] MEDS ORDERED: LORazepam 2 MG/ML VIAL IVP ONE (00:45)
== END 2017-12-16 03:15 | disposition home or self-care (01) ==
LOC: ER 23:58
DX: T78.40XA Allergy, unspecified, initial encounter (principal)
CPT/HCPCS: 96374; 96375; 99284; A9270; J1200; J2060; J2930

== ENCOUNTER → 2018-08-22 | Outpatient (CLI) | payer MEDICARE, OTHER | LOC: LAB 11:47 | PROVIDERS: ATTEND Urology | DX: C61 Malignant neoplasm of prostate (principal) | CPT/HCPCS: 36415; 84153 ==